=== PATIENT | male | born 1975 | race Caucasian/White ===

== ENCOUNTER 2017-10-13 12:15 | Emergency (ER) | payer BC ==
[~2017-10-13] VITALS: Ht 170.2 cm; Wt 149.1 kg
[~2017-10-13 12:15] MED LIST: FLEXERIL10 MG PO; HYDROCODON-ACE1 EAC5 PO; HYDROCODON-ACE1 EAC7 PO; MECLIZINE HCL25 MG PO; PREDNISONE20 MG PO; ROBAXIN500 MG PO; VALIUM10 MG PO; VICODIN,LORT1 TABLET PO
[2017-10-13 13:00] LABS: HEMATOCRIT 43.7 % (38.0-50.0); MCH 31.1 PG (29.0-34.0); MCHC 34.3 G/DL (30.0-36.0); MCV 90.7 FL (86-99); PLATELET COUNT 188 K/uL (156-360); RBC DIS.WIDTH-CV 12.4 % (11.8-14.6); RBC DIS.WIDTH-SD 40.7 % (39-53); RED BLOOD COUNT 4.82 M/uL (4.00-5.50); WHITE BLOOD COUNT 7.6 K/uL (4.1-10.2)
[2017-10-13 13:09] LABS: CHLORIDE 106 mEq/L (99-109); POTASSIUM 3.9 mEq/L (3.7-5.4); SODIUM 142 mEq/L (136-147)
[2017-10-13 13:11] LABS: GLUCOSE 124 mg/dL (70-99)
[2017-10-13 13:15] LABS: GFR ESTIMATE (CALCULATED) > 59 mL/min/ (58.99-99999)
[2017-10-13 13:16] LABS: UREA NITROGEN (BUN) 11 mg/dL (9-23)
[2017-10-13] MEDS ORDERED: MOTRIN800 MG PO (15:27)
[2017-10-13] MEDS ORDERED: FUTURO RESTORI1 EACH MC (15:27)
[2017-10-13 15:43] VITALS: BP 144/87
== END 2017-10-13 15:44 | disposition home or self-care (01) ==
LOC: EME 12:15
PROVIDERS: Physician Assistant
DX: I80.01 Phlebitis and thrombophlebitis of superficial vessels of right lower extremity (principal); G89.29 Other chronic pain
CPT/HCPCS: 80048; 85027; 93971; 99281; 99284